=== PATIENT | male | born 1985 | race Caucasian/White ===

== ENCOUNTER 2022-04-05 09:28 | Emergency (ER) | payer OTHER, SELFPAY ==
[2022-04-05] MEDS ORDERED: Lidocaine 1% (PF) 30 ML VIAL ONE (10:11)
[2022-04-05] MEDS ORDERED: Boostrix 0.5 ML (Tdap) VIAL (>/=7 yrs of age) ONE (12:07)
== END 2022-04-05 13:08 | disposition home or self-care (01) ==
LOC: ERS 09:28
DX: S01.551A Open bite of lip, initial encounter (principal); S41.151A Open bite of right upper arm, initial encounter; Z23 Encounter for immunization; W54.0XXA Bitten by dog, initial encounter
CPT/HCPCS: 12001; 40650; 90471; 90715; J2001